=== PATIENT | male | born 1960 | race Caucasian/White ===

== ENCOUNTER 2021-05-04 14:49 | Emergency (ER) | payer BC ==
[2021-05-04 15:14] VITALS: BP 154/91; PULSE 89
--- NOTE | 2021-05-04 16:10 | EDM.PDOC ---
ED HPI GENERAL MEDICAL PROBLEM - General Chief Complaint: Lower Extremity Injury/Pain Stated Complaint: pelvis pain Time Seen by Provider: 05/04/21 15:20 Source of Information: Reports: Patient History Limitations: Reports: No Limitations - History of Present Illness INITIAL COMMENTS - FREE TEXT/NARRATIVE: Patient comes to ER with hip area pain after falling off horse. Reports that he slid off to side and did a sort of "splits" with one leg over the saddle and the other towards the ground. Did not hit head. Not wearing a helmet. Was riding at a walk when back girth slipped towards flank of horse which caused horse to hop. No contusions/bruises reported. Able to walk. Feels basically pain-free when sitting still. Some soreness under umbilicus that he feels was from saddle horn digging into lower abdomen. Has discomfort in thighs/around hips with active movement. No numbness/tingling/weakness. No other reported injuries. Bilateral Pelvic Pain Score (Numeric/FACES): 5 - Related Data Allergies Allergy/AdvReac Type Severity Reaction Status Date / Time No Known Allergies Allergy Verified 05/04/21 14:51 Home Meds: Home Meds . [No Known Home Meds] 12/27/15 [History] Past Medical History HEENT History: Reports: Impaired Vision Cardiovascular History: Reports: None, Hypertension Respiratory History: Reports: None Gastrointestinal History: Reports: None Genitourinary History: Reports: None Musculoskeletal History: Reports: None Neurological History: Reports: None Psychiatric History: Reports: None Endocrine/Metabolic History: Reports: None Hematologic History: Reports: None Immunologic History: Reports: None Oncologic (Cancer) History: Reports: None Dermatologic History: Reports: None - Infectious Disease History Infectious Disease History: Reports: Chicken Pox, Mumps - Past Surgical History Cardiovascular Surgical History: Reports: None Respiratory Surgical History: Reports: None Male Surgical History: Reports: Circumcision Endocrine Surgical History: Reports: None Neurological Surgical History: Reports: None Musculoskeletal Surgical History: Reports: None Oncologic Surgical History: Reports: None Dermatological Surgical History: Reports: None - Past Imaging History Past Imaging History: Reports: None Social & Family History - Tobacco Use Tobacco Use Status *Q: Never Tobacco User - Caffeine Use Caffeine Use: Reports: Soda Other Caffeine Use: 1 a day - Recreational Drug Use Recreational Drug Use: No - Living Situation & Occupation Living situation: Reports: , Alone Occupation: Employed Review of Systems - Review of Systems Review Of Systems: See Below Constitutional: Reports: No Symptoms Eyes: Reports: No Symptoms Ears: Reports: No Symptoms Nose: Reports: No Symptoms Mouth/Throat: Reports: No Symptoms Respiratory: Reports: No Symptoms. Denies: Shortness of Breath Cardiovascular: Reports: No Symptoms. Denies: Chest Pain GI/Abdominal: Reports: No Symptoms. Denies: Abdominal Pain Genitourinary: Reports: No Symptoms. Denies: Dysuria, Hematuria, Incontinence, Painful Urination Musculoskeletal: Reports: Other (discomfort bilat hip/thigh discomfort) Skin: Reports: No Symptoms Neurological: Denies: Confusion, Dizziness, Headache, Numbness, Paresthesia, Tingling, Trouble Speaking, Weakness, Change in Speech Psychiatric: Reports: No Symptoms ED EXAM, GENERAL - Physical Exam Exam: See Below Exam Limited By: No Limitations General Appearance: Alert, WD/WN, Other (Appears uncomfortable with asked to change positions and when asked to lie down) Eye Exam: Bilateral Eye: EOMI, PERRL Ears: Normal External Exam, Hearing Grossly Normal Nose: No: Nasal Deformity, Nasal Swelling, Nasal Drainage Throat/Mouth: Normal Lips, Normal Voice, No Airway Compromise Head: Atraumatic, Normocephalic Neck: Supple, Non-Tender, Full Range of Motion Respiratory/Chest: No Respiratory Distress, Lungs Clear, Normal Breath Sounds, No Accessory Muscle Use, Chest Non-Tender Cardiovascular: Regular Rate, Rhythm, No Murmur GI/Abdominal: Soft, No Distention, Pelvis Stable, Tender (mild tenderness with palpation just under umbilicus). No: Guarding, Rigid, Rebound (Male) Exam: Deferred Rectal (Males) Exam: Deferred Back Exam: Normal Inspection, Full Range of Motion. No: CVA Tenderness (L), CVA Tenderness (R), Muscle Spasm, Paraspinal Tenderness, Vertebral Tenderness Extremities: No Pedal Edema, Normal Capillary Refill, Other (Good passive ROM bilateral hips/LE. Minimal discomfort when patient asked to relax and not engage muscles. Diffuse nonfocal discomfort with palpation of soft tissues around inner thighs/gluteal/pelvic areas bilat. No obvious bruises/swelling. ) Neurological: Alert, Oriented, Normal Cognition, Other (no focal neuro deficits noted. ) Psychiatric: Normal Affect, Normal Mood Skin Exam: Warm, Dry, Intact, Normal Color Course - Vital Signs Last Recorded V/S: Last Vital Signs Temp 36.9 C 05/04/21 15:13 Pulse 89 05/04/21 15:13 Resp 16 05/04/21 15:13 BP 154/91 H 05/04/21 15:13 Pulse Ox 99 05/04/21 15:13 - Orders/Labs/Meds Orders: Active Orders 24 hr Category Date Time Status Lumbar Spine 2 or 3V [CR] Stat Exams 05/04/21 15:03 Taken Pelvis 1V or 2V [CR] Stat Exams 05/04/21 15:02 Taken Sacroiliac Joint 2V [CR] Stat Exams 05/04/21 15:04 Taken - Re-Assessments/Exams Free Text/Narrative Re-Assessment/Exam: 05/04/21 17:02 Xrays of L-S spine/pelvis showed no focal injuries. Patient has minimal pain with passive ROM when not engaging muscles. Suspect patient hyperextended lower extremities when he slid off saddle and is having pain from soft tissue injury. Plan at this time is to have him observe things over the coming week. Gentle stretching/activity/ice/Tylenol. To go bottles of Tramadol and Toradol were given to him to help with pain. Recommend follow up recheck if no significant improvement within a week. May benefit from PT referral at that time/may need to consider additional imaging. To follow up otherwise as needed PRN sudden problems/worsening. Patient agreeable with plan. Departure - Departure Time of Disposition: 16:05 Disposition: Home, Self-Care 01 Condition: Good Clinical Impression: Soft tissue injury of pelvic region Qualifiers: Encounter type: initial encounter Qualified Code(s): S39.93XA - Unspecified injury of pelvis, initial encounter - Discharge Information *PRESCRIPTION DRUG MONITORING PROGRAM REVIEWED*: Not Applicable *COPY OF PRESCRIPTION DRUG MONITORING REPORT IN PATIENT SHERRY: Not Applicable Instructions: Hip Pain Referrals: PCP,None [Primary Care Provider] - Forms: ED Department Discharge Additional Instructions: Gentle activity/ROM. Ice sore areas judiciously as discussed. OK to take Tylenol. Take Tramadol and Toradol 1 every 6 hours as needed for pain. The Toradol is in the same family as ibuprofen so do not take any ibuprofen or Aleve while on the Toradol. See how you feel over the coming week. If you still have significant discomfort with moving around please get rechecked as we discussed around 10 days from now. Consider referral to PT/new imaging if needed. Sepsis Event Note (ED) - Evaluation Sepsis Screening Result: No Definite Risk - Focused Exam Vital Signs: Vital Signs Temp Pulse Resp BP Pulse Ox 05/04/21 15:13 36.9 C 89 16 154/91 H 99 - My Orders Last 24 Hours: My Active Orders 05/04/21 15:02 Pelvis 1V or 2V [CR] Stat 05/04/21 15:03 Lumbar Spine 2 or 3V [CR] Stat 05/04/21 15:04 Sacroiliac Joint 2V [CR] Stat - Assessment/Plan Last 24 Hours: My Active Orders 05/04/21 15:02 Pelvis 1V or 2V [CR] Stat 05/04/21 15:03 Lumbar Spine 2 or 3V [CR] Stat 05/04/21 15:04 Sacroiliac Joint 2V [CR] Stat
== END 2021-05-04 16:30 | disposition home or self-care (01) ==
LOC: LL.ED 14:49
DX: S39.93XA Unspecified injury of pelvis, initial encounter (principal); I10 Essential (primary) hypertension; V80.010A Animal-rider injured by fall from or being thrown from horse in noncollision accident, initial encounter; Y93.52 Activity, horseback riding
CPT/HCPCS: 72100; 72170; 72200; 99283; 99283-25

== ENCOUNTER 2021-06-24 11:25 | Inpatient (IN) | payer BC ==
[2021-06-24] MEDS ORDERED: REMDESIVIR 200 MG in Sodium Chloride 0.9% 250 ML IV ONE (11:42)
--- NOTE | 2021-06-24 12:45 | EDM.PDOC ---
ED HPI GENERAL MEDICAL PROBLEM - General Chief Complaint: Respiratory Problem Stated Complaint: covid hypoxia Time Seen by Provider: 06/24/21 11:35 Source of Information: Reports: Patient History Limitations: Reports: No Limitations - History of Present Illness INITIAL COMMENTS - FREE TEXT/NARRATIVE: Pt. presents to ER with complaints of shortness of breath and cough. He was di agnosed with covid 19 last , had started feeling poorly the weekend before. He was seen in the clinic, but he did not meet criteria for monoclonal antibodies at that time. He was started on oral dexamethasone and azithromycin. Pt. states that he has become more dyspneic since his diagnosis. Complains of discomfort with swallowing, and taking a deep breath causes him significant increase in cough. Pt. states that he is chilled, occasionally diaphoretic. States that he has some weakness, but for the most part has no myalgias or arthralgias with walking but he does have increased dyspnea with ambulation. Pt. has a pulse oximeter at home and has been monitoring his O2 saturation. He states that he has been in the low 80% range so he came to the ER. Pt. denies any substernal chest pain. No jaw, arm, neck or back pain. Denies any nausea or vomiting. He has not had his covid vaccination(s). Pt. is a non-smoker/non drinker. Denies any history of chronic lung disease. He is not diabetic. Denies taking any other medications daily. Onset Date: 06/20/21 Location: Reports: Chest, Generalized Improves with: Reports: Rest Worsens with: Reports: Movement Associated Symptoms: Reports: Cough, Diaphoresis, Fever/Chills, Shortness of Breath - Related Data Allergies Allergy/AdvReac Type Severity Reaction Status Date / Time No Known Allergies Allergy Verified 06/24/21 11:27 Home Meds: Home Meds Azithromycin 1 tab PO DAILY 06/24/21 [History] dexAMETHasone [Dexamethasone] 6 mg PO DAILY 06/24/21 [History] Past Medical History HEENT History: Reports: Impaired Vision Cardiovascular History: Reports: None, Hypertension Respiratory History: Reports: None Gastrointestinal History: Reports: None Genitourinary History: Reports: None Musculoskeletal History: Reports: None Neurological History: Reports: None Psychiatric History: Reports: None Endocrine/Metabolic History: Reports: None Hematologic History: Reports: None Immunologic History: Reports: None Oncologic (Cancer) History: Reports: None Dermatologic History: Reports: None - Infectious Disease History Infectious Disease History: Reports: Chicken Pox, Mumps - Past Surgical History Cardiovascular Surgical History: Reports: None Respiratory Surgical History: Reports: None Male Surgical History: Reports: Circumcision Endocrine Surgical History: Reports: None Neurological Surgical History: Reports: None Musculoskeletal Surgical History: Reports: None Oncologic Surgical History: Reports: None Dermatological Surgical History: Reports: None - Past Imaging History Past Imaging History: Reports: None Social & Family History - Caffeine Use Caffeine Use: Reports: Soda Other Caffeine Use: 1 a day - Living Situation & Occupation Living situation: Reports: , Alone Occupation: Employed ED ROS GENERAL - Review of Systems Review Of Systems: See Below Constitutional: Reports: No Symptoms HEENT: Reports: No Symptoms Respiratory: Reports: Shortness of Breath, Cough Cardiovascular: Reports: No Symptoms Endocrine: Reports: No Symptoms GI/Abdominal: Reports: No Symptoms : Reports: No Symptoms Musculoskeletal: Reports: No Symptoms Skin: Reports: No Symptoms Neurological: Reports: No Symptoms Psychiatric: Reports: No Symptoms Hematologic/Lymphatic: Reports: No Symptoms Immunologic: Reports: No Symptoms ED EXAM, GENERAL - Physical Exam Exam: See Below Exam Limited By: No Limitations General Appearance: Alert, WD/WN, No Apparent Distress Eye Exam: Bilateral Eye: EOMI, PERRL Nose: Normal Inspection, Normal Mucosa, No Blood Throat/Mouth: Normal Inspection, Normal Lips, Normal Teeth, Normal Oropharynx, Normal Voice, No Airway Compromise Head: Atraumatic, Normocephalic Neck: Normal Inspection, Supple, Non-Tender, Full Range of Motion Respiratory/Chest: No Respiratory Distress, Lungs Clear, Normal Breath Sounds, No Accessory Muscle Use, Chest Non-Tender Cardiovascular: Normal Peripheral Pulses, Regular Rate, Rhythm, No Edema, No JVD, No Murmur Peripheral Pulses: 4+: Radial (R) GI/Abdominal: Soft, Non-Tender, No Distention, No Mass (Male) Exam: Deferred Rectal (Males) Exam: Deferred Back Exam: Normal Inspection, Full Range of Motion Extremities: Normal Inspection, Normal Range of Motion, Non-Tender, No Pedal Edema, Normal Capillary Refill Neurological: Alert, Oriented, CN II-XII Intact, Normal Cognition, Normal Gait, Normal Reflexes, No Motor/Sensory Deficits Psychiatric: Normal Affect, Normal Mood Skin Exam: Warm, Dry, Intact, Normal Color, No Rash Lymphatic: No Adenopathy #1 Interpretation Rhythm: NSR Earle: Normal P-Wave: Present QRS: Normal ST-T: Normal QT: Normal Course - Vital Signs Last Recorded V/S: Last Vital Signs Temp 36.8 C 06/24/21 11:25 Pulse 91 06/24/21 12:09 Resp 19 06/24/21 12:09 BP 126/77 06/24/21 12:09 Pulse Ox 94 L 06/24/21 12:09 - Orders/Labs/Meds Orders: Active Orders 24 hr Category Date Time Status Cardiac Monitoring [RC] CONTINUOUS Care 06/24/21 11:41 Active Intake and Output [RC] QSHIFT Care 06/24/21 11:41 Active Overnight Pulse Oximetry [RC] Click to Edit Care 06/24/21 11:41 Active Oxygen Therapy [RC] PRN Care 06/24/21 11:41 Active Peripheral IV Care [RC] . DIRECTED Care 06/24/21 11:41 Active Up With Assistance [RC] ASDIRECTED Care 06/24/21 11:41 Active Vital Signs [RC] Q4H Care 06/24/21 11:41 Active Chest 1V Frontal [CR] Stat Exams 06/24/21 11:40 Taken BILIRUBIN DIRECT [CHEM] DAILY Lab 06/25/21 11:45 Ordered BILIRUBIN DIRECT [CHEM] DAILY Lab 06/26/21 11:45 Ordered BILIRUBIN DIRECT [CHEM] DAILY Lab 06/27/21 11:45 Ordered BILIRUBIN DIRECT [CHEM] DAILY Lab 06/28/21 11:45 Ordered COMPREHENSIVE METABOLIC PN,CMP [CHEM] DAILY Lab 06/25/21 11:45 Ordered COMPREHENSIVE METABOLIC PN,CMP [CHEM] DAILY Lab 06/26/21 11:45 Ordered COMPREHENSIVE METABOLIC PN,CMP [CHEM] DAILY Lab 06/27/21 11:45 Ordered COMPREHENSIVE METABOLIC PN,CMP [CHEM] DAILY Lab 06/28/21 11:45 Ordered CULTURE BLOOD [BC] Stat Lab 06/24/21 12:14 Received CULTURE BLOOD [BC] Stat Lab 06/24/21 12:30 Received FERRITIN [CHEM] Stat Lab 06/24/21 12:14 Received Sodium Chloride 0.9% [Saline Flush] Med 06/24/21 11:39 Active 10 ml FLUSH ASDIRECTED PRN Blood Culture x2 Reflex Set [OM.PC] Stat Oth 06/24/21 11:40 Ordered Peripheral IV Insertion Adult [OM.PC] Routine Oth 06/24/21 11:40 Ordered Pulse Oximetry Continuous Monitoring [OM.PC] Routine Oth 06/24/21 11:40 Ordered Medication Orders Dexamethasone (Dexamethasone 2 Mg Tab) 6 mg PO DAILY ANISH Remdesivir 100 mg/ Sodium (Chloride) 100 mls @ 100 mls/hr IV Q24H ANISH Stop: 06/28/21 15:59 Sodium Chloride (Sodium Chloride 0.9% 10 Ml Syringe) 10 ml FLUSH ASDIRECTED PRN PRN Reason: Keep Vein Open Sodium Chloride (Sodium Chloride 0.9% 10 Ml Syringe) 30 ml FLUSH DAILY@1600 ANISH Stop: 06/28/21 16:01 Labs: Laboratory Tests 06/24/21 06/24/21 06/24/21 Range/Units 12:14 12:14 12:14 WBC (4.0-10.2) K/uL RBC (4.33-5.41) M/uL Hgb (13.1-16.8) g/dL Hct (39.0-49.0) % MCV (84.0-98.0) fL MCH (28.2-33.3) pg MCHC (31.7-36.0) g/dL RDW (11.2-14.1) % Plt Count (150-350) K/uL Neut % (Auto) (45.0-80.0) % Lymph % (Auto) (10.0-50.0) % [place] % (Auto) (2.0-14.0) % Eos % (Auto) (0.0-5.0) % Baso % (Auto) (0.0-2.0) % Neut # (Auto) (1.40-7.00) K/uL Lymph # (Auto) (0.50-3.50) K/uL [place] # (Auto) (0.00-1.00) K/uL Eos # (Auto) (0.00-0.50) K/uL Baso # (Auto) (0.00-0.20) K/uL PT 10.6 (9.5-12.0) SEC INR 1.1 APTT 29.2 (24.5-32.8) SEC D-Dimer, Quantitative (0-400) ng/mL Sodium 140 (136-145) mmol/L Potassium 3.9 (3.5-5.1) mmol/L Chloride 103 (98-107) mmol/L Carbon Dioxide 30.2 (21.0-32.0) mmol/L Anion Gap 6.8 L (7-15) meq/L BUN 29 H (7-18) mg/dL Creatinine 1.04 (0.51-1.17) mg/dL Est Cr Clr Drug Dosing 78.97 mL/min Estimated GFR (MDRD) > 60 mL/min Glucose 105 H (70-99) mg/dL Lactic Acid 2.0 (0.4-2.0) mmol/L Calcium 8.4 L (8.5-10.1) mg/dL Phosphorus 2.9 (2.6-4.7) mg/dL Magnesium 2.5 H (1.8-2.4) mg/dL Total Bilirubin 0.8 (0.2-1.0) mg/dL Direct Bilirubin 0.2 (0.0-0.2) mg/dL AST 50 H (15-37) U/L ALT 68 (12-78) U/L Alkaline Phosphatase 51 (46-116) IU/L Lactate Dehydrogenase 407 H (81-234) U/L Troponin I High Sens 7 (<=76) ng/L C-Reactive Protein 4.8 H (<=0.9) mg/dL NT-Pro-B Natriuret Pep 78 (0-125) pg/mL Total Protein 8.0 (6.4-8.2) g/dL Albumin 3.0 L (3.4-5.0) g/dL 06/24/21 06/24/21 Range/Units 12:14 12:14 WBC 9.8 (4.0-10.2) K/uL RBC 5.72 H (4.33-5.41) M/uL Hgb 16.8 (13.1-16.8) g/dL Hct 48.1 (39.0-49.0) % MCV 84.1 (84.0-98.0) fL MCH 29.4 (28.2-33.3) pg MCHC 34.9 (31.7-36.0) g/dL RDW 13.7 (11.2-14.1) % Plt Count 203 (150-350) K/uL Neut % (Auto) 91.0 H (45.0-80.0) % Lymph % (Auto) 5.0 L (10.0-50.0) % [place] % (Auto) 4.0 (2.0-14.0) % Eos % (Auto) 0.0 (0.0-5.0) % Baso % (Auto) 0.0 (0.0-2.0) % Neut # (Auto) 8.94 H (1.40-7.00) K/uL Lymph # (Auto) 0.49 L (0.50-3.50) K/uL [place] # (Auto) 0.39 (0.00-1.00) K/uL Eos # (Auto) 0.00 (0.00-0.50) K/uL Baso # (Auto) 0.00 (0.00-0.20) K/uL PT (9.5-12.0) SEC INR APTT (24.5-32.8) SEC D-Dimer, Quantitative 915 H (0-400) ng/mL Sodium (136-145) mmol/L Potassium (3.5-5.1) mmol/L Chloride (98-107) mmol/L Carbon Dioxide (21.0-32.0) mmol/L Anion Gap (7-15) meq/L BUN (7-18) mg/dL Creatinine (0.51-1.17) mg/dL Est Cr Clr Drug Dosing mL/min Estimated GFR (MDRD) mL/min Glucose (70-99) mg/dL Lactic Acid (0.4-2.0) mmol/L Calcium (8.5-10.1) mg/dL Phosphorus (2.6-4.7) mg/dL Magnesium (1.8-2.4) mg/dL Total Bilirubin (0.2-1.0) mg/dL Direct Bilirubin (0.0-0.2) mg/dL AST (15-37) U/L ALT (12-78) U/L Alkaline Phosphatase (46-116) IU/L Lactate Dehydrogenase (81-234) U/L Troponin I High Sens (<=76) ng/L C-Reactive Protein (<=0.9) mg/dL NT-Pro-B Natriuret Pep (0-125) pg/mL Total Protein (6.4-8.2) g/dL Albumin (3.4-5.0) g/dL Meds: Medications Generic Name Dose Route Start Last Admin Trade Name Freq PRN Reason Stop Dose Admin Dexamethasone 6 mg 06/24/21 15:00 Dexamethasone 2 Mg Tab PO DAILY ANISH Remdesivir 100 mg/ Sodium 100 mls @ 100 mls/hr 06/25/21 15:00 Chloride IV 06/28/21 15:59 Q24H ANISH Sodium Chloride 10 ml 06/24/21 11:39 Sodium Chloride 0.9% 10 Ml Syringe FLUSH ASDIRECTED PRN Keep Vein Open Sodium Chloride 30 ml 06/24/21 16:00 Sodium Chloride 0.9% 10 Ml Syringe FLUSH 06/28/21 16:01 DAILY@1600 ANISH Discontinued Medications Generic Name Dose Route Start Last Admin Trade Name Freq PRN Reason Stop Dose Admin Azithromycin 500 mg 06/24/21 15:00 Azithromycin 250 Mg Tab PO 06/24/21 15:01 ONETIME ONE Dexamethasone 6 mg 06/25/21 08:00 Dexamethasone 10 Mg/Ml Sdv IVPUSH DAILY ANISH Remdesivir 200 mg/ Sodium 250 mls @ 250 mls/hr 06/24/21 11:42 Chloride IV 06/24/21 12:41 ONETIME ONE Iopamidol 100 ml 06/24/21 13:39 06/24/21 14:09 Iopamidol 755 Mg/Ml 100 Ml Bottle IVPUSH 06/24/21 13:40 100 ml ONETIME STA Administration - Radiology Interpretation Free Text/Narrative:: chest x-ray-Poor inspiration, ground glass appearance consistent with viral pneumonia. CTA of chest was obtained, as he had + d dimer. No PE was noted. There was no evidence of heart strain. Diffuse interstitial opacification consistent with covid pneumonia. Departure - Departure Time of Disposition: 15:15 Disposition: Admitted As Inpatient 68 Clinical Impression: Pneumonia due to 2019 novel coronavirus, Hypoxia - Discharge Information Sepsis Event Note (ED) - Focused Exam Vital Signs: Vital Signs Temp Pulse Resp BP Pulse Ox Pulse Ox 06/24/21 12:09 91 19 126/77 94 L 06/24/21 11:54 93 19 122/84 93 L 06/24/21 11:39 91 20 119/83 91 L 06/24/21 11:30 90 L 06/24/21 11:25 36.8 C 92 24 H 132/87 80 L - Problem List Review Problem List Initiated/Reviewed/Updated: Yes - My Orders Last 24 Hours: My Active Orders 06/24/21 11:39 Sodium Chloride 0.9% [Saline Flush] 10 ml FLUSH ASDIRECTED PRN 06/24/21 11:40 Chest 1V Frontal [CR] Stat Blood Culture x2 Reflex Set [OM.PC] Stat Peripheral IV Insertion Adult [OM.PC] Routine Pulse Oximetry Continuous Monitoring [OM.PC] Routine 06/24/21 11:41 Cardiac Monitoring [RC] CONTINUOUS Intake and Output [RC] QSHIFT Overnight Pulse Oximetry [RC] Click to Edit Oxygen Therapy [RC] PRN Peripheral IV Care [RC] . DIRECTED Up With Assistance [RC] ASDIRECTED Vital Signs [RC] Q4H 06/24/21 12:14 CULTURE BLOOD [BC] Stat FERRITIN [CHEM] Stat 06/24/21 12:30 CULTURE BLOOD [BC] Stat 06/25/21 11:45 BILIRUBIN DIRECT [CHEM] DAILY COMPREHENSIVE METABOLIC PN,CMP [CHEM] DAILY 06/26/21 11:45 BILIRUBIN DIRECT [CHEM] DAILY COMPREHENSIVE METABOLIC PN,CMP [CHEM] DAILY 06/27/21 11:45 BILIRUBIN DIRECT [CHEM] DAILY COMPREHENSIVE METABOLIC PN,CMP [CHEM] DAILY 06/28/21 11:45 BILIRUBIN DIRECT [CHEM] DAILY COMPREHENSIVE METABOLIC PN,CMP [CHEM] DAILY - Assessment/Plan Last 24 Hours: My Active Orders 06/24/21 11:39 Sodium Chloride 0.9% [Saline Flush] 10 ml FLUSH ASDIRECTED PRN 06/24/21 11:40 Chest 1V Frontal [CR] Stat Blood Culture x2 Reflex Set [OM.PC] Stat Peripheral IV Insertion Adult [OM.PC] Routine Pulse Oximetry Continuous Monitoring [OM.PC] Routine 06/24/21 11:41 Cardiac Monitoring [RC] CONTINUOUS Intake and Output [RC] QSHIFT Overnight Pulse Oximetry [RC] Click to Edit Oxygen Therapy [RC] PRN Peripheral IV Care [RC] . DIRECTED Up With Assistance [RC] ASDIRECTED Vital Signs [RC] Q4H 06/24/21 12:14 CULTURE BLOOD [BC] Stat FERRITIN [CHEM] Stat 06/24/21 12:30 CULTURE BLOOD [BC] Stat 06/25/21 11:45 BILIRUBIN DIRECT [CHEM] DAILY COMPREHENSIVE METABOLIC PN,CMP [CHEM] DAILY 06/26/21 11:45 BILIRUBIN DIRECT [CHEM] DAILY COMPREHENSIVE METABOLIC PN,CMP [CHEM] DAILY 06/27/21 11:45 BILIRUBIN DIRECT [CHEM] DAILY COMPREHENSIVE METABOLIC PN,CMP [CHEM] DAILY 06/28/21 11:45 BILIRUBIN DIRECT [CHEM] DAILY COMPREHENSIVE METABOLIC PN,CMP [CHEM] DAILY Plan: Pt. was admitted acute. O2 sat has been consistently in the mid 90% range since started O2 at 5L/min per [place]. Pt. indicated he wanted to be intubated and ventilated if needed for respiratory failure. he was started on remdesivir 200mg x 1, then 100mg daily thereafter. Will continue azithromycin for full course, as well as oral dexamethasone. CTA of chest did not show PE or heart strain. He did have a fall from a horse at the end of April and had extensive bruising to his lower body which could potentially account for mildly elevated d dimer as well. He will but up ad jeremy with bathroom privileges. Will start incentive spirometry. Family was briefed by nursing. They are welcome to call at any time if they have questions or concerns.
[2021-06-24] MEDS ORDERED: Iopamidol 755 Mg/ML 100 ML Bottle IVPUSH STA (13:39)
[2021-06-24 13:56] LABS: PTT,PARTIAL THROMBOPLSTIN TIME 29.2 SEC (24.5-32.8)
[2021-06-24 14:07] LABS: ANION GAP 6.8 meq/L (7-15); CHLORIDE,CL 103 mmol/L (98-107); SODIUM,NA 140 mmol/L (136-145)
[2021-06-24] MEDS ORDERED: Azithromycin 250 MG Tab PO ONE (15:00)
[2021-06-24] MEDS: Dexamethasone 2 MG Tab PO SCH (15:08)
[2021-06-24] MEDS: Sodium Chloride 0.9% 10 ML Syringe FLUSH PRN ×3 (15:11→21:05)
[2021-06-24] MEDS: Enoxaparin 40 MG/0.4 ML Syringe SUBCUT SCH (16:12)
[2021-06-24] MEDS: Sodium Chloride 0.9% 10 ML Syringe FLUSH SCH (16:14)
[2021-06-25] MEDS: Albuterol/Ipratropium 3.0-0.5 MG/3 ML Neb Soln NEB PRN ×2 (00:20→08:10)
[2021-06-25] MEDS: Aluminum Hydroxide/Magnesium Hydroxide/Simethicone Susp 30 ML Cup PO PRN (00:21)
[2021-06-25] MEDS ORDERED: Dexamethasone 10 MG/ML SDV IVPUSH SCH (08:00)
[2021-06-25 08:02] LABS: ANION GAP 8.2 meq/L (7-15); CHLORIDE,CL 105 mmol/L (98-107); SODIUM,NA 140 mmol/L (136-145)
[2021-06-25] MEDS: Enoxaparin 40 MG/0.4 ML Syringe SUBCUT SCH (08:10)
[2021-06-25] MEDS: Dexamethasone 2 MG Tab PO SCH (08:11)
[2021-06-25] MEDS: Sodium Chloride 0.9% 10 ML Syringe FLUSH SCH ×2 (08:12→16:14)
[2021-06-25] MEDS ORDERED: Albuterol/Ipratropium 4 GM Inhalation Spray INH PRN (11:12)
--- NOTE | 2021-06-25 14:19 | PCM.PN ---
- General Info Date of Service: 06/25/21 Admission Dx/Problem (Free Text): Patient admitted for treatment of worsening Covid and Covid-related hypoxemia Subjective Update: Feels better since being started on oxygen Functional Status: Reports: Pain Controlled, Tolerating Diet. Denies: New Symptoms - Review of Systems General: Reports: Weakness, Fatigue, Malaise, Chills, Appetite (poor). Denies: Fever, Night Sweats HEENT: Reports: No Symptoms Pulmonary: Reports: Shortness of Breath, Cough. Denies: Pleuritic Chest Pain, Sputum, Hemoptysis, Wheezing Cardiovascular: Reports: No Symptoms Gastrointestinal: Reports: No Symptoms. Denies: Abdominal Pain, Diarrhea, Nausea, Vomiting Genitourinary: Reports: No Symptoms Musculoskeletal: Reports: No Symptoms Skin: Reports: No Symptoms Neurological: Reports: No Symptoms. Denies: Headache Psychiatric: Reports: No Symptoms - Patient Data Vitals - Most Recent: Last Vital Signs Temp 36.7 C 06/25/21 11:58 Pulse 73 06/25/21 11:58 Resp 24 H 06/25/21 11:58 BP 124/73 06/25/21 11:58 Pulse Ox 89 L 06/25/21 11:58 Weight - Most Recent: 90.718 kg I&O - Last 24 Hours: Intake & Output 06/24/21 06/25/21 06/25/21 22:59 06:59 14:59 Intake Total 1100 100 140 Output Total 500 400 500 Balance 600 -300 -360 Lab Results Last 24 Hours: Laboratory Results - last 24 hr 06/24/21 06/24/21 06/25/21 Range/Units 12:14 12:14 07:30 Sodium 140 (136-145) mmol/L Potassium 4.0 (3.5-5.1) mmol/L Chloride 105 (98-107) mmol/L Carbon Dioxide 26.8 (21.0-32.0) mmol/L Anion Gap 8.2 (7-15) meq/L BUN 28 H (7-18) mg/dL Creatinine 0.85 (0.51-1.17) mg/dL Est Cr Clr Drug Dosing 96.62 mL/min Estimated GFR (MDRD) > 60 mL/min Glucose 112 H (70-99) mg/dL Lactic Acid 2.0 (0.4-2.0) mmol/L Calcium 8.0 L (8.5-10.1) mg/dL Ferritin 1375 H (8-388) ng/mL Total Bilirubin 0.6 (0.2-1.0) mg/dL Direct Bilirubin 0.2 (0.0-0.2) mg/dL AST 40 H (15-37) U/L ALT 59 (12-78) U/L Alkaline Phosphatase 45 L (46-116) IU/L Total Protein 6.9 (6.4-8.2) g/dL Albumin 2.5 L (3.4-5.0) g/dL [place] Results Last 24 Hours: Microbiology 06/24/21 12:30 Aerobic Blood Culture - Preliminary Blood - Venous - Lab Draw NO GROWTH AFTER 1 DAY Anaerobic Blood Culture - Preliminary NO GROWTH AFTER 1 DAY 06/24/21 12:14 Aerobic Blood Culture - Preliminary Blood - Venous NO GROWTH AFTER 1 DAY Anaerobic Blood Culture - Preliminary NO GROWTH AFTER 1 DAY Med Orders - Current: Current Medications Al Hydroxide/Mg Hydroxide (Aluminum Hydroxide/Magnesium Hydroxide/Simethicone Susp 30 Ml Cup) 30 ml PO Q6H PRN PRN Reason: Dyspepsia Last Admin: 06/25/21 00:21 Dose: 30 ml Documented by: Albuterol/Ipratropium (Albuterol/Ipratropium 4 Gm Inhalation [place]) 0 gm INH QID PRN PRN Reason: SHORTNESS OF BREATH Dexamethasone (Dexamethasone 2 Mg Tab) 6 mg PO DAILY [facility] Last Admin: 06/25/21 08:11 Dose: 6 mg Documented by: Enoxaparin Sodium (Enoxaparin 40 Mg/0.4 Ml Syringe) 40 mg SUBCUT DAILY [facility] Last Admin: 06/25/21 08:10 Dose: 40 mg Documented by: Remdesivir 100 mg/ Sodium (Chloride) 100 mls @ 100 mls/hr IV Q24H [facility] Stop: 06/28/21 15:59 Sodium Chloride (Sodium Chloride 0.9% 10 Ml Syringe) 10 ml FLUSH ASDIRECTED PRN PRN Reason: Keep Vein Open Last Admin: 06/24/21 21:05 Dose: 10 ml Documented by: Sodium Chloride (Sodium Chloride 0.9% 10 Ml Syringe) 30 ml FLUSH DAILY@1600 [facility] Stop: 06/28/21 16:01 Last Admin: 06/24/21 16:14 Dose: 30 ml Documented by: Sodium Chloride (Sodium Chloride 0.9% 10 Ml Syringe) 10 ml FLUSH Q12HR [facility] Last Admin: 06/25/21 08:12 Dose: 10 ml Documented by: Discontinued Medications Albuterol/Ipratropium (Albuterol/Ipratropium 3.0-0.5 Mg/3 Ml Neb Soln) 3 ml NEB Q4HRRT PRN PRN Reason: Dyspnea Last Admin: 06/25/21 08:10 Dose: 3 ml Documented by: Azithromycin (Azithromycin 250 Mg Tab) 500 mg PO ONETIME ONE Stop: 06/24/21 15:01 Last Admin: 06/24/21 15:06 Dose: 500 mg Documented by: Dexamethasone (Dexamethasone 10 Mg/Ml Sdv) 6 mg IVPUSH DAILY [facility] Remdesivir 200 mg/ Sodium (Chloride) 250 mls @ 250 mls/hr IV ONETIME ONE Stop: 06/24/21 12:41 Last Admin: 06/24/21 15:09 Dose: 250 mls/hr Documented by: Iopamidol (Iopamidol 755 Mg/Ml 100 Ml Bottle) 100 ml IVPUSH ONETIME STA Stop: 06/24/21 13:40 Last Admin: 06/24/21 14:09 Dose: 100 ml Documented by: - Exam Quality Assessment: Supplemental Oxygen, DVT Prophylaxis General: Alert, Oriented, Cooperative, No Acute Distress HEENT: Pupils Equal, Pupils Reactive, EOMI, Mucous Membr. Moist/[place] Neck: Supple Lungs: Clear to Auscultation, Other (mild increased respiratory rate noted. ). No: Crackles, Rales, Rhonchi, Rub, Stridor, Wheezing Cardiovascular: Regular Rate, Regular Rhythm GI/Abdominal Exam: Soft, Non-Tender, No Distention (Male) Exam: Deferred Back Exam: No: Muscle Spasm, Paraspinal Tenderness, Vertebral Tenderness Extremities: Non-Tender, Normal Capillary Refill Skin: Warm, Dry Neurological: No New Focal Deficit Psy/Mental Status: Alert, Normal Affect, Normal Mood - Patient Data Lab Results Last 24 hrs: Laboratory Results - last 24 hr 06/24/21 06/24/21 06/25/21 Range/Units 12:14 12:14 07:30 Sodium 140 (136-145) mmol/L Potassium 4.0 (3.5-5.1) mmol/L Chloride 105 (98-107) mmol/L Carbon Dioxide 26.8 (21.0-32.0) mmol/L Anion Gap 8.2 (7-15) meq/L BUN 28 H (7-18) mg/dL Creatinine 0.85 (0.51-1.17) mg/dL Est Cr Clr Drug Dosing 96.62 mL/min Estimated GFR (MDRD) > 60 mL/min Glucose 112 H (70-99) mg/dL Lactic Acid 2.0 (0.4-2.0) mmol/L Calcium 8.0 L (8.5-10.1) mg/dL Ferritin 1375 H (8-388) ng/mL Total Bilirubin 0.6 (0.2-1.0) mg/dL Direct Bilirubin 0.2 (0.0-0.2) mg/dL AST 40 H (15-37) U/L ALT 59 (12-78) U/L Alkaline Phosphatase 45 L (46-116) IU/L Total Protein 6.9 (6.4-8.2) g/dL Albumin 2.5 L (3.4-5.0) g/dL Result Diagrams: 06/24/21 12:14 06/25/21 07:30 [place] Results Last 24 hrs: Microbiology 06/24/21 12:30 Aerobic Blood Culture - Preliminary Blood - Venous - Lab Draw NO GROWTH AFTER 1 DAY Anaerobic Blood Culture - Preliminary NO GROWTH AFTER 1 DAY 06/24/21 12:14 Aerobic Blood Culture - Preliminary Blood - Venous NO GROWTH AFTER 1 DAY Anaerobic Blood Culture - Preliminary NO GROWTH AFTER 1 DAY Sepsis Event Note - Evaluation Sepsis Screening Result: No Definite Risk - Focused Exam Vital Signs: Vital Signs Temp Pulse Resp BP BP Pulse Ox 06/25/21 11:58 36.7 C 73 24 H 124/73 89 L 06/25/21 08:00 36.4 C 70 24 H 129/85 89 L 06/25/21 04:38 36.3 C 74 18 126/70 92 L - Problem List & Annotations (1) Pneumonia due to 2019 novel coronavirus SNOMED Code(s): 748683112255163448 Code(s): U07.1 - COVID-19; J12.82 - PNEUMONIA DUE TO CORONAVIRUS DISEASE 2019 Status: Acute Priority: High Current Visit: Yes Onset Date: ~06/16/21 Annotation/Comment:: Receiving Remdesivir and Dexamethasone (2) Hypoxia SNOMED Code(s): 788004681 Code(s): R09.02 - HYPOXEMIA Status: Acute Priority: High Current Visit: Yes Annotation/Comment:: Currently receving 8L via [place]. - Problem List Review Problem List Initiated/Reviewed/Updated: Yes - My Orders Last 24 Hours: My Active Orders 06/25/21 11:12 Albuterol/Ipratropium [Combivent Respimat] 0 gm INH QID PRN - Assessment Assessment:: Covid related hypoxemia - Plan Plan:: Continue supplemental oxygen/Remdesivir/Dexamethasone. Consider transfer to [place] if worsening respiratory compromise is noted. Anticipate additional 3-4+ days inpatient care depending upon clinical course.
[2021-06-25] MEDS: REMDESIVIR 100 MG in Sodium Chloride 0.9% 100 ML IV SCH (15:13)
[2021-06-26] MEDS: Sodium Chloride 0.9% 10 ML Syringe FLUSH SCH ×4 (00:12→20:05)
[2021-06-26] MEDS: Aluminum Hydroxide/Magnesium Hydroxide/Simethicone Susp 30 ML Cup PO PRN (02:44)
[2021-06-26 08:01] LABS: ANION GAP 9.7 meq/L (7-15); CHLORIDE,CL 106 mmol/L (98-107); SODIUM,NA 143 mmol/L (136-145)
[2021-06-26] MEDS: Dexamethasone 2 MG Tab PO SCH (08:25)
[2021-06-26] MEDS: Enoxaparin 40 MG/0.4 ML Syringe SUBCUT SCH (08:26)
--- NOTE | 2021-06-26 09:07 | PCM.PN ---
- General Info Date of Service: 06/26/21 Admission Dx/Problem (Free Text): Patient admitted for treatment of worsening Covid and Covid-related hypoxemia Subjective Update: Feels better since being started on oxygen Functional Status: Reports: Pain Controlled, Tolerating Diet, Ambulating, Urinating, Incentive Spirometry. Denies: New Symptoms - Review of Systems General: Reports: Weakness, Fatigue, Malaise, Chills, Appetite (poor) HEENT: Reports: No Symptoms Pulmonary: Reports: Shortness of Breath, Cough. Denies: Sputum, Hemoptysis, Wheezing Cardiovascular: Reports: No Symptoms Gastrointestinal: Reports: Decreased Appetite Genitourinary: Reports: No Symptoms Musculoskeletal: Reports: No Symptoms Skin: Reports: No Symptoms Neurological: Reports: No Symptoms Psychiatric: Reports: No Symptoms - Patient Data Vitals - Most Recent: Last Vital Signs Temp 36.2 C 06/26/21 03:58 Pulse 66 06/26/21 03:58 Resp 24 H 06/26/21 03:58 BP 140/83 06/26/21 03:58 Pulse Ox 94 L 06/26/21 03:58 Weight - Most Recent: 90.718 kg I&O - Last 24 Hours: Intake & Output 06/25/21 06/26/21 06/26/21 22:59 06:59 14:59 Intake Total 340 Output Total 600 Balance 340 -600 Lab Results Last 24 Hours: Laboratory Results - last 24 hr 06/26/21 Range/Units 07:30 Sodium 143 (136-145) mmol/L Potassium 4.3 (3.5-5.1) mmol/L Chloride 106 (98-107) mmol/L Carbon Dioxide 27.3 (21.0-32.0) mmol/L Anion Gap 9.7 (7-15) meq/L BUN 29 H (7-18) mg/dL Creatinine 0.83 (0.51-1.17) mg/dL Est Cr Clr Drug Dosing 98.95 mL/min Estimated GFR (MDRD) > 60 mL/min Glucose 94 (70-99) mg/dL Calcium 8.3 L (8.5-10.1) mg/dL Total Bilirubin 0.7 (0.2-1.0) mg/dL Direct Bilirubin 0.2 (0.0-0.2) mg/dL AST 28 (15-37) U/L ALT 44 (12-78) U/L Alkaline Phosphatase 51 (46-116) IU/L Total Protein 6.9 (6.4-8.2) g/dL Albumin 2.5 L (3.4-5.0) g/dL [place] Results Last 24 Hours: Microbiology 06/24/21 12:30 Aerobic Blood Culture - Preliminary Blood - Venous - Lab Draw NO GROWTH AFTER 1 DAY Anaerobic Blood Culture - Preliminary NO GROWTH AFTER 1 DAY 06/24/21 12:14 Aerobic Blood Culture - Preliminary Blood - Venous NO GROWTH AFTER 1 DAY Anaerobic Blood Culture - Preliminary NO GROWTH AFTER 1 DAY Med Orders - Current: Current Medications Al Hydroxide/Mg Hydroxide (Aluminum Hydroxide/Magnesium Hydroxide/Simethicone Susp 30 Ml Cup) 30 ml PO Q6H PRN PRN Reason: Dyspepsia Last Admin: 06/26/21 02:44 Dose: 30 ml Documented by: Albuterol/Ipratropium (Albuterol/Ipratropium 4 Gm Inhalation [place]) 0 gm INH QID PRN PRN Reason: SHORTNESS OF BREATH Dexamethasone (Dexamethasone 2 Mg Tab) 6 mg PO DAILY [facility] Last Admin: 06/26/21 08:25 Dose: 6 mg Documented by: Enoxaparin Sodium (Enoxaparin 40 Mg/0.4 Ml Syringe) 40 mg SUBCUT DAILY [facility] Last Admin: 06/26/21 08:26 Dose: 40 mg Documented by: Remdesivir 100 mg/ Sodium (Chloride) 100 mls @ 100 mls/hr IV Q24H [facility] Stop: 06/28/21 15:59 Last Admin: 06/25/21 15:13 Dose: 100 mls/hr Documented by: Sodium Chloride (Sodium Chloride 0.9% 10 Ml Syringe) 10 ml FLUSH ASDIRECTED PRN PRN Reason: Keep Vein Open Last Admin: 06/24/21 21:05 Dose: 10 ml Documented by: Sodium Chloride (Sodium Chloride 0.9% 10 Ml Syringe) 30 ml FLUSH DAILY@1600 [facility] Stop: 06/28/21 16:01 Last Admin: 06/25/21 16:14 Dose: 30 ml Documented by: Sodium Chloride (Sodium Chloride 0.9% 10 Ml Syringe) 10 ml FLUSH Q12HR [facility] Last Admin: 06/26/21 08:26 Dose: 10 ml Documented by: Discontinued Medications Albuterol/Ipratropium (Albuterol/Ipratropium 3.0-0.5 Mg/3 Ml Neb Soln) 3 ml NEB Q4HRRT PRN PRN Reason: Dyspnea Last Admin: 06/25/21 08:10 Dose: 3 ml Documented by: Azithromycin (Azithromycin 250 Mg Tab) 500 mg PO ONETIME ONE Stop: 06/24/21 15:01 Last Admin: 06/24/21 15:06 Dose: 500 mg Documented by: Dexamethasone (Dexamethasone 10 Mg/Ml Sdv) 6 mg IVPUSH DAILY [facility] Remdesivir 200 mg/ Sodium (Chloride) 250 mls @ 250 mls/hr IV ONETIME ONE Stop: 06/24/21 12:41 Last Admin: 06/24/21 15:09 Dose: 250 mls/hr Documented by: Iopamidol (Iopamidol 755 Mg/Ml 100 Ml Bottle) 100 ml IVPUSH ONETIME STA Stop: 06/24/21 13:40 Last Admin: 06/24/21 14:09 Dose: 100 ml Documented by: - Exam Quality Assessment: Supplemental Oxygen, DVT Prophylaxis General: Alert, Oriented, Cooperative, No Acute Distress HEENT: Pupils Equal, Pupils Reactive, EOMI, Mucous Membr. Moist/[place] Neck: Supple Lungs: Other (mild tachypnea). No: Crackles, Rales, Rhonchi, Stridor, Wheezing Cardiovascular: Regular Rate, Regular Rhythm GI/Abdominal Exam: Normal Bowel Sounds, Soft, Non-Tender, No Distention (Male) Exam: Deferred Back Exam: No: Muscle Spasm Extremities: Non-Tender, Normal Capillary Refill Skin: Warm, Dry Neurological: No New Focal Deficit Psy/Mental Status: Alert, Normal Affect, Normal Mood - Patient Data Lab Results Last 24 hrs: Laboratory Results - last 24 hr 06/26/21 Range/Units 07:30 Sodium 143 (136-145) mmol/L Potassium 4.3 (3.5-5.1) mmol/L Chloride 106 (98-107) mmol/L Carbon Dioxide 27.3 (21.0-32.0) mmol/L Anion Gap 9.7 (7-15) meq/L BUN 29 H (7-18) mg/dL Creatinine 0.83 (0.51-1.17) mg/dL Est Cr Clr Drug Dosing 98.95 mL/min Estimated GFR (MDRD) > 60 mL/min Glucose 94 (70-99) mg/dL Calcium 8.3 L (8.5-10.1) mg/dL Total Bilirubin 0.7 (0.2-1.0) mg/dL Direct Bilirubin 0.2 (0.0-0.2) mg/dL AST 28 (15-37) U/L ALT 44 (12-78) U/L Alkaline Phosphatase 51 (46-116) IU/L Total Protein 6.9 (6.4-8.2) g/dL Albumin 2.5 L (3.4-5.0) g/dL Result Diagrams: 06/24/21 12:14 06/26/21 07:30 [place] Results Last 24 hrs: Microbiology 06/24/21 12:30 Aerobic Blood Culture - Preliminary Blood - Venous - Lab Draw NO GROWTH AFTER 1 DAY Anaerobic Blood Culture - Preliminary NO GROWTH AFTER 1 DAY 06/24/21 12:14 Aerobic Blood Culture - Preliminary Blood - Venous NO GROWTH AFTER 1 DAY Anaerobic Blood Culture - Preliminary NO GROWTH AFTER 1 DAY Sepsis Event Note - Evaluation Sepsis Screening Result: No Definite Risk - Focused Exam Vital Signs: Vital Signs Temp Temp Pulse Resp BP Pulse Ox 06/26/21 03:58 36.2 C 66 24 H 140/83 94 L 06/26/21 00:00 36.4 C 74 24 H 154/86 H 91 L - Problem List & Annotations (1) Pneumonia due to 2019 novel coronavirus SNOMED Code(s): 156620064266851982 Code(s): U07.1 - COVID-19; J12.82 - PNEUMONIA DUE TO CORONAVIRUS DISEASE 2019 Status: Acute Priority: High Current Visit: Yes Onset Date: ~06/16/21 Annotation/Comment:: Receiving Remdesivir and Dexamethasone (2) Hypoxia SNOMED Code(s): 466837538 Code(s): R09.02 - HYPOXEMIA Status: Acute Priority: High Current Visit: Yes Annotation/Comment:: Currently receving 8L via [place]. - Problem List Review Problem List Initiated/Reviewed/Updated: Yes - My Orders Last 24 Hours: My Active Orders 06/25/21 11:12 Albuterol/Ipratropium [Combivent Respimat] 0 gm INH QID PRN - Assessment Assessment:: Covid related hypoxemia. Stable. Mild improvement in O2 sats this morning on 8L. Stable respiratory rate. - Plan Plan:: Continue supplemental oxygen/Remdesivir/Dexamethasone. Consider transfer to [place] if worsening respiratory compromise is noted. Anticipate additional 3-4+ days inpatient care depending upon clinical course.
[2021-06-26] MEDS: REMDESIVIR 100 MG in Sodium Chloride 0.9% 100 ML IV SCH (15:32)
[2021-06-27 07:51] LABS: ANION GAP 8.9 meq/L (7-15); CHLORIDE,CL 107 mmol/L (98-107); SODIUM,NA 142 mmol/L (136-145)
[2021-06-27] MEDS: Enoxaparin 40 MG/0.4 ML Syringe SUBCUT SCH (08:38)
[2021-06-27] MEDS: Dexamethasone 2 MG Tab PO SCH (08:39)
[2021-06-27] MEDS: Sodium Chloride 0.9% 10 ML Syringe FLUSH SCH ×4 (08:40→21:31)
[2021-06-27] MEDS ORDERED: GI Cocktail Oral Solution 30 ML PO ONE (09:11)
[2021-06-27] MEDS: Albuterol/Ipratropium 3.0-0.5 MG/3 ML Neb Soln NEB SCH ×4 (09:34→21:30)
[2021-06-27] MEDS: Pantoprazole 40 MG Vial IVPUSH SCH (09:34)
[2021-06-27] MEDS: Sodium Chloride 0.9% 10 ML Syringe FLUSH PRN ×3 (09:35→11:59)
[2021-06-27 10:22] LABS: O2 DELIVERY DEVICE HI FLOW NASAL CANNU; PCO2 ARTERIAL 35 mmHG (35-45); PO2 ARTERIAL 79 mmHG (80-105)
[2021-06-27 10:23] LABS: BASE EXCESS ARTERIAL 1 mmol/L (-2-3); BICARBONATE,ARTERIAL 24.2 mmol/L (22-26); O2 SATURATION ARTERIAL 96 % (95-98)
[2021-06-27] MEDS ORDERED: REMDESIVIR 100 MG in Sodium Chloride 0.9% 100 ML IV SCH (12:00)
--- NOTE | 2021-06-27 13:32 | PCM.PN ---
- General Info Date of Service: 06/27/21 Admission Dx/Problem (Free Text): Patient admitted for treatment of worsening Covid and Covid-related hypoxemia Subjective Update: Feels better since being started on oxygen. No better/no worse per self report Pain Score: 0 - Review of Systems General: Reports: Weakness, Fatigue, Malaise HEENT: Reports: No Symptoms Pulmonary: Reports: Shortness of Breath, Cough Cardiovascular: Reports: Dyspnea on Exertion. Denies: Chest Pain, Palpitations, Edema, Lightheadedness Gastrointestinal: Reports: Other (heartburn/epigastric discomfort. ) Genitourinary: Reports: No Symptoms Musculoskeletal: Reports: No Symptoms Skin: Reports: No Symptoms Neurological: Reports: No Symptoms Psychiatric: Reports: No Symptoms - Patient Data Vitals - Most Recent: Last Vital Signs Temp 36.8 C 06/27/21 11:59 Pulse 79 06/27/21 11:59 Resp 22 H 06/27/21 11:59 BP 128/81 06/27/21 11:59 Pulse Ox 90 L 06/27/21 11:59 Weight - Most Recent: 90.718 kg I&O - Last 24 Hours: Intake & Output 06/26/21 06/27/21 06/27/21 22:59 06:59 14:59 Intake Total 570 240 Output Total 300 500 Balance 270 -260 Lab Results Last 24 Hours: Laboratory Results - last 24 hr 06/27/21 06/27/21 06/27/21 Range/Units 07:10 07:10 10:18 WBC 13.5 H (4.0-10.2) K/uL RBC 5.28 (4.33-5.41) M/uL Hgb 15.5 (13.1-16.8) g/dL Hct 44.7 (39.0-49.0) % MCV 84.7 (84.0-98.0) fL MCH 29.4 (28.2-33.3) pg MCHC 34.7 (31.7-36.0) g/dL RDW 13.3 (11.2-14.1) % Plt Count 230 (150-350) K/uL Neut % (Auto) 92.8 H (45.0-80.0) % Lymph % (Auto) 4.5 L (10.0-50.0) % [place] % (Auto) 2.6 (2.0-14.0) % Eos % (Auto) 0.0 (0.0-5.0) % Baso % (Auto) 0.1 (0.0-2.0) % Neut # (Auto) 12.53 H (1.40-7.00) K/uL Lymph # (Auto) 0.61 (0.50-3.50) K/uL [place] # (Auto) 0.35 (0.00-1.00) K/uL Eos # (Auto) 0.00 (0.00-0.50) K/uL Baso # (Auto) 0.01 (0.00-0.20) K/uL ABG pH 7.44 (7.35-7.45) ABG pCO2 35 (35-45) mmHG ABG pO2 79 L (80-105) mmHG ABG HCO3 24.2 (22-26) mmol/L ABG Total CO2 25 (23-27) mmol/L ABG O2 Saturation 96 (95-98) % ABG Base Excess 1 (-2-3) mmol/L O2 Delivery Device Hi flow nasal cannu Sodium 142 (136-145) mmol/L Potassium 4.1 (3.5-5.1) mmol/L Chloride 107 (98-107) mmol/L Carbon Dioxide 26.1 (21.0-32.0) mmol/L Anion Gap 8.9 (7-15) meq/L BUN 27 H (7-18) mg/dL Creatinine 0.80 (0.51-1.17) mg/dL Est Cr Clr Drug Dosing 102.66 mL/min Estimated GFR (MDRD) > 60 mL/min Glucose 93 (70-99) mg/dL Lactic Acid (0.4-2.0) mmol/L Calcium 8.0 L (8.5-10.1) mg/dL Total Bilirubin 0.8 (0.2-1.0) mg/dL Direct Bilirubin 0.3 H (0.0-0.2) mg/dL AST 26 (15-37) U/L ALT 38 (12-78) U/L Alkaline Phosphatase 50 (46-116) IU/L Total Protein 6.7 (6.4-8.2) g/dL Albumin 2.5 L (3.4-5.0) g/dL 06/27/21 Range/Units 10:18 WBC (4.0-10.2) K/uL RBC (4.33-5.41) M/uL Hgb (13.1-16.8) g/dL Hct (39.0-49.0) % MCV (84.0-98.0) fL MCH (28.2-33.3) pg MCHC (31.7-36.0) g/dL RDW (11.2-14.1) % Plt Count (150-350) K/uL Neut % (Auto) (45.0-80.0) % Lymph % (Auto) (10.0-50.0) % [place] % (Auto) (2.0-14.0) % Eos % (Auto) (0.0-5.0) % Baso % (Auto) (0.0-2.0) % Neut # (Auto) (1.40-7.00) K/uL Lymph # (Auto) (0.50-3.50) K/uL [place] # (Auto) (0.00-1.00) K/uL Eos # (Auto) (0.00-0.50) K/uL Baso # (Auto) (0.00-0.20) K/uL ABG pH (7.35-7.45) ABG pCO2 (35-45) mmHG ABG pO2 (80-105) mmHG ABG HCO3 (22-26) mmol/L ABG Total CO2 (23-27) mmol/L ABG O2 Saturation (95-98) % ABG Base Excess (-2-3) mmol/L O2 Delivery Device Sodium (136-145) mmol/L Potassium (3.5-5.1) mmol/L Chloride (98-107) mmol/L Carbon Dioxide (21.0-32.0) mmol/L Anion Gap (7-15) meq/L BUN (7-18) mg/dL Creatinine (0.51-1.17) mg/dL Est Cr Clr Drug Dosing mL/min Estimated GFR (MDRD) mL/min Glucose (70-99) mg/dL Lactic Acid 0.4 (0.4-2.0) mmol/L Calcium (8.5-10.1) mg/dL Total Bilirubin (0.2-1.0) mg/dL Direct Bilirubin (0.0-0.2) mg/dL AST (15-37) U/L ALT (12-78) U/L Alkaline Phosphatase (46-116) IU/L Total Protein (6.4-8.2) g/dL Albumin (3.4-5.0) g/dL [place] Results Last 24 Hours: Microbiology 06/24/21 12:30 Aerobic Blood Culture - Preliminary Blood - Venous - Lab Draw NO GROWTH AFTER 3 DAYS Anaerobic Blood Culture - Preliminary NO GROWTH AFTER 3 DAYS 06/24/21 12:14 Aerobic Blood Culture - Preliminary Blood - Venous NO GROWTH AFTER 3 DAYS Anaerobic Blood Culture - Preliminary NO GROWTH AFTER 3 DAYS Med Orders - Current: Current Medications Al Hydroxide/Mg Hydroxide (Aluminum Hydroxide/Magnesium Hydroxide/Simethicone Susp 30 Ml Cup) 30 ml PO Q6H PRN PRN Reason: Dyspepsia Last Admin: 06/26/21 02:44 Dose: 30 ml Documented by: Albuterol/Ipratropium (Albuterol/Ipratropium 4 Gm Inhalation [place]) 0 gm INH QID PRN PRN Reason: SHORTNESS OF BREATH Last Admin: 06/27/21 08:39 Dose: 1 puff Documented by: Albuterol/Ipratropium (Albuterol/Ipratropium 3.0-0.5 Mg/3 Ml Neb Soln) 3 ml NEB Q4HRRT [facility] Last Admin: 06/27/21 11:57 Dose: 3 ml Documented by: Dexamethasone (Dexamethasone 2 Mg Tab) 6 mg PO DAILY [facility] Last Admin: 06/27/21 08:39 Dose: 6 mg Documented by: Enoxaparin Sodium (Enoxaparin 40 Mg/0.4 Ml Syringe) 40 mg SUBCUT DAILY [facility] Last Admin: 06/27/21 08:38 Dose: 40 mg Documented by: Remdesivir 100 mg/ Sodium (Chloride) 100 mls @ 100 mls/hr IV Q24H [facility] Stop: 06/28/21 12:59 Last Admin: 06/27/21 11:57 Dose: 100 mls/hr Documented by: Pantoprazole Sodium (Pantoprazole 40 Mg Vial) 40 mg IVPUSH DAILY [facility] Last Admin: 06/27/21 09:34 Dose: 40 mg Documented by: Sodium Chloride (Sodium Chloride 0.9% 10 Ml Syringe) 10 ml FLUSH ASDIRECTED PRN PRN Reason: Keep Vein Open Last Admin: 06/27/21 11:59 Dose: 10 ml Documented by: Sodium Chloride (Sodium Chloride 0.9% 10 Ml Syringe) 30 ml FLUSH DAILY@1600 [facility] Stop: 06/28/21 16:01 Last Admin: 06/26/21 16:27 Dose: 30 ml Documented by: Sodium Chloride (Sodium Chloride 0.9% 10 Ml Syringe) 10 ml FLUSH Q12HR [facility] Last Admin: 06/27/21 08:40 Dose: 10 ml Documented by: Discontinued Medications Al Hydroxide/Mg Hydroxide (Gi Cocktail Oral Solution 30 Ml) 30 ml PO ONETIME ONE Stop: 06/27/21 09:12 Last Admin: 06/27/21 09:34 Dose: 30 ml Documented by: Albuterol/Ipratropium (Albuterol/Ipratropium 3.0-0.5 Mg/3 Ml Neb Soln) 3 ml NEB Q4HRRT PRN PRN Reason: Dyspnea Last Admin: 06/25/21 08:10 Dose: 3 ml Documented by: Azithromycin (Azithromycin 250 Mg Tab) 500 mg PO ONETIME ONE Stop: 06/24/21 15:01 Last Admin: 06/24/21 15:06 Dose: 500 mg Documented by: Dexamethasone (Dexamethasone 10 Mg/Ml Sdv) 6 mg IVPUSH DAILY [facility] Remdesivir 200 mg/ Sodium (Chloride) 250 mls @ 250 mls/hr IV ONETIME ONE Stop: 06/24/21 12:41 Last Admin: 06/24/21 15:09 Dose: 250 mls/hr Documented by: Remdesivir 100 mg/ Sodium (Chloride) 100 mls @ 100 mls/hr IV Q24H [facility] Stop: 06/28/21 15:59 Last Admin: 06/26/21 15:32 Dose: 100 mls/hr Documented by: Iopamidol (Iopamidol 755 Mg/Ml 100 Ml Bottle) 100 ml IVPUSH ONETIME [facility] Stop: 06/24/21 13:40 Last Admin: 06/24/21 14:09 Dose: 100 ml Documented by: - Exam Quality Assessment: Supplemental Oxygen, DVT Prophylaxis General: Alert, Oriented, Cooperative, No Acute Distress HEENT: Pupils Equal, Pupils Reactive, EOMI, Mucous Membr. Moist/[place] Neck: Supple Lungs: Normal Respiratory Effort, Decreased Breath Sounds. No: Crackles, Rales, Rhonchi, Rub, Stridor, Wheezing Cardiovascular: Regular Rate, Regular Rhythm GI/Abdominal Exam: Soft, Non-Tender, No Distention (Male) Exam: Deferred Back Exam: No: CVA Tenderness (L), CVA Tenderness (R), Muscle Spasm Extremities: Normal Inspection, Normal Capillary Refill Skin: Warm, Dry Neurological: No New Focal Deficit Psy/Mental Status: Alert, Normal Affect, Normal Mood - Patient Data Lab Results Last 24 hrs: Laboratory Results - last 24 hr 06/27/21 06/27/21 06/27/21 Range/Units 07:10 07:10 10:18 WBC 13.5 H (4.0-10.2) K/uL RBC 5.28 (4.33-5.41) M/uL Hgb 15.5 (13.1-16.8) g/dL Hct 44.7 (39.0-49.0) % MCV 84.7 (84.0-98.0) fL MCH 29.4 (28.2-33.3) pg MCHC 34.7 (31.7-36.0) g/dL RDW 13.3 (11.2-14.1) % Plt Count 230 (150-350) K/uL Neut % (Auto) 92.8 H (45.0-80.0) % Lymph % (Auto) 4.5 L (10.0-50.0) % [place] % (Auto) 2.6 (2.0-14.0) % Eos % (Auto) 0.0 (0.0-5.0) % Baso % (Auto) 0.1 (0.0-2.0) % Neut # (Auto) 12.53 H (1.40-7.00) K/uL Lymph # (Auto) 0.61 (0.50-3.50) K/uL [place] # (Auto) 0.35 (0.00-1.00) K/uL Eos # (Auto) 0.00 (0.00-0.50) K/uL Baso # (Auto) 0.01 (0.00-0.20) K/uL ABG pH 7.44 (7.35-7.45) ABG pCO2 35 (35-45) mmHG ABG pO2 79 L (80-105) mmHG ABG HCO3 24.2 (22-26) mmol/L ABG Total CO2 25 (23-27) mmol/L ABG O2 Saturation 96 (95-98) % ABG Base Excess 1 (-2-3) mmol/L O2 Delivery Device Hi flow nasal cannu Sodium 142 (136-145) mmol/L Potassium 4.1 (3.5-5.1) mmol/L Chloride 107 (98-107) mmol/L Carbon Dioxide 26.1 (21.0-32.0) mmol/L Anion Gap 8.9 (7-15) meq/L BUN 27 H (7-18) mg/dL Creatinine 0.80 (0.51-1.17) mg/dL Est Cr Clr Drug Dosing 102.66 mL/min Estimated GFR (MDRD) > 60 mL/min Glucose 93 (70-99) mg/dL Lactic Acid (0.4-2.0) mmol/L Calcium 8.0 L (8.5-10.1) mg/dL Total Bilirubin 0.8 (0.2-1.0) mg/dL Direct Bilirubin 0.3 H (0.0-0.2) mg/dL AST 26 (15-37) U/L ALT 38 (12-78) U/L Alkaline Phosphatase 50 (46-116) IU/L Total Protein 6.7 (6.4-8.2) g/dL Albumin 2.5 L (3.4-5.0) g/dL 06/27/21 Range/Units 10:18 WBC (4.0-10.2) K/uL RBC (4.33-5.41) M/uL Hgb (13.1-16.8) g/dL Hct (39.0-49.0) % MCV (84.0-98.0) fL MCH (28.2-33.3) pg MCHC (31.7-36.0) g/dL RDW (11.2-14.1) % Plt Count (150-350) K/uL Neut % (Auto) (45.0-80.0) % Lymph % (Auto) (10.0-50.0) % [place] % (Auto) (2.0-14.0) % Eos % (Auto) (0.0-5.0) % Baso % (Auto) (0.0-2.0) % Neut # (Auto) (1.40-7.00) K/uL Lymph # (Auto) (0.50-3.50) K/uL [place] # (Auto) (0.00-1.00) K/uL Eos # (Auto) (0.00-0.50) K/uL Baso # (Auto) (0.00-0.20) K/uL ABG pH (7.35-7.45) ABG pCO2 (35-45) mmHG ABG pO2 (80-105) mmHG ABG HCO3 (22-26) mmol/L ABG Total CO2 (23-27) mmol/L ABG O2 Saturation (95-98) % ABG Base Excess (-2-3) mmol/L O2 Delivery Device Sodium (136-145) mmol/L Potassium (3.5-5.1) mmol/L Chloride (98-107) mmol/L Carbon Dioxide (21.0-32.0) mmol/L Anion Gap (7-15) meq/L BUN (7-18) mg/dL Creatinine (0.51-1.17) mg/dL Est Cr Clr Drug Dosing mL/min Estimated GFR (MDRD) mL/min Glucose (70-99) mg/dL Lactic Acid 0.4 (0.4-2.0) mmol/L Calcium (8.5-10.1) mg/dL Total Bilirubin (0.2-1.0) mg/dL Direct Bilirubin (0.0-0.2) mg/dL AST (15-37) U/L ALT (12-78) U/L Alkaline Phosphatase (46-116) IU/L Total Protein (6.4-8.2) g/dL Albumin (3.4-5.0) g/dL Result Diagrams: 06/27/21 07:10 06/27/21 07:10 [place]y Results Last 24 hrs: Microbiology 06/24/21 12:30 Aerobic Blood Culture - Preliminary Blood - Venous - Lab Draw NO GROWTH AFTER 3 DAYS Anaerobic Blood Culture - Preliminary NO GROWTH AFTER 3 DAYS 06/24/21 12:14 Aerobic Blood Culture - Preliminary Blood - Venous NO GROWTH AFTER 3 DAYS Anaerobic Blood Culture - Preliminary NO GROWTH AFTER 3 DAYS Sepsis Event Note - Evaluation Sepsis Screening Result: No Definite Risk - Focused Exam Vital Signs: Vital Signs Temp Temp Pulse Resp BP BP Pulse Ox 06/27/21 11:59 36.8 C 79 22 H 128/81 90 L 06/27/21 10:38 99 06/27/21 10:00 98 06/27/21 08:05 93 L 06/27/21 08:00 36.2 C 78 18 134/81 90 L 06/27/21 04:00 36.3 C 80 20 135/88 90 L - Problem List & Annotations (1) Pneumonia due to 2019 novel coronavirus SNOMED Code(s): 586118276335267109 Code(s): U07.1 - COVID-19; J12.82 - PNEUMONIA DUE TO CORONAVIRUS DISEASE 2019 Status: Acute Priority: High Current Visit: Yes Onset Date: ~06/16/21 Annotation/Comment:: Remdesivir and Dexamethasone ordered. (2) Hypoxia SNOMED Code(s): 861409486 Code(s): R09.02 - HYPOXEMIA Status: Acute Priority: High Current Visit: Yes Annotation/Comment:: Currently receving 8L via NC. - Problem List Review Problem List Initiated/Reviewed/Updated: Yes - My Orders Last 24 Hours: My Active Orders 06/27/21 09:13 RT Aerosol Therapy [RC] ASDIRECTED Albuterol/Ipratropium [DuoNeb 3.0-0.5 MG/3 ML] 3 ml NEB Q4HRRT 06/27/21 09:15 Pantoprazole [ProTONIX IV] 40 mg IVPUSH DAILY 06/27/21 10:12 Chest 1V Frontal [CR] Stat - Assessment Assessment:: Covid related hypoxemia. Stable. Brief need to increase patient to 10L this morning. Neb given and O2 sats improved. Now back on 8L with O2 sat at 90%. Regular nebs reinstated vs handheld MDIs. Stable respiratory rate. Negative chest CT for PE during this hospitalization. - Plan Plan:: Continue supplemental oxygen/Remdesivir/Dexamethasone. Consider transfer to [place] if worsening respiratory compromise is noted. Patient has been relatively stable but unable to decrease O2 from 8L. Anticipate additional 3-4+ days inpatient care depending upon clinical course.
[2021-06-27] MEDS ORDERED: Temazepam 15 MG Cap PO PRN (21:16)
[2021-06-28] MEDS: Albuterol/Ipratropium 3.0-0.5 MG/3 ML Neb Soln NEB SCH ×4 (00:17→08:03)
[2021-06-28 07:42] LABS: ANION GAP 6.4 meq/L (7-15); CHLORIDE,CL 107 mmol/L (98-107); SODIUM,NA 142 mmol/L (136-145)
[2021-06-28] MEDS: Dexamethasone 2 MG Tab PO SCH (08:01)
[2021-06-28] MEDS: Enoxaparin 40 MG/0.4 ML Syringe SUBCUT SCH (08:03)
[2021-06-28] MEDS: Pantoprazole 40 MG Vial IVPUSH SCH (08:04)
[2021-06-28] MEDS: Sodium Chloride 0.9% 10 ML Syringe FLUSH SCH (08:05)
[2021-06-28 08:14] VITALS: BP 118/80; PULSE 78
--- NOTE | 2021-06-28 09:23 | PCM.DCSUM1 ---
Discharge Summary - Hospital Course Brief History: Patient admitted for treatment of hypoxemia due to acute Covid infection Diagnosis: Stroke: No - Discharge Data Discharge Date: 06/28/21 Discharge Disposition: DC/Tfer to Acute Hospital 02 Condition: Good - Referral to Home Health Primary Care Physician: PCP None - Discharge Diagnosis/Problem(s) (1) Pneumonia due to 2019 novel coronavirus SNOMED Code(s): 415341398286707059 ICD Code: U07.1 - COVID-19; J12.82 - PNEUMONIA DUE TO CORONAVIRUS DISEASE 2019 Status: Acute Priority: High Current Visit: Yes Onset Date: ~06/16/21 Problem Details: Remdesivir and Dexamethasone. O2 supplementation. Patient did not receive vaccine. (2) Hypoxia SNOMED Code(s): 150523163 ICD Code: R09.02 - HYPOXEMIA Status: Acute Priority: High Current Visit: Yes Problem Details: Currently receiving 9.5L NC - Patient Summary/Data Hospital Course: Patient remained stable at 8L for initial portion of stay. Has been requiring increasing support over last 24 hours. WBC elevated yesterday but improving today. Patient afebrile. Mild increased severity of pneumonia per Radiology. Now requiring 9.5L. Has started to experience tachypnea again. Respiratory rate at/over 40 whenever he is up/performing an activity. O2 sats at rest high 80s. Desats to 70s with activity. Given this decline patient it was felt that patient needed higher level of care. Reviewed with Phuc/. He accepted patient for transfer to [place]. Patient will initially go to intermediate care. - Discharge Plan Home Medications: Home Meds Azithromycin 1 tab PO DAILY 06/24/21 [History] dexAMETHasone [Dexamethasone] 6 mg PO DAILY 06/24/21 [History] Forms: ED Department Discharge Referrals: PCP,None [Primary Care Provider] - - Discharge Summary/Plan Comment DC Time >30 min.: No Total # of Minutes for Discharge Time: 30 - Patient Data Vitals - Most Recent: Last Vital Signs Temp 36.6 C 06/28/21 08:00 Pulse 78 06/28/21 08:00 Resp 28 H 06/28/21 08:00 BP 118/80 06/28/21 08:00 Pulse Ox 87 L 06/28/21 08:00 Weight - Most Recent: 90.718 kg I&O - Last 24 hours: Intake & Output 06/27/21 06/28/21 06/28/21 22:59 06:59 14:59 Intake Total 500 480 Output Total 600 700 Balance -100 -220 Lab Results - Last 24 hrs: Laboratory Results - last 24 hr 06/27/21 06/27/21 06/27/21 Range/Units 07:10 10:18 10:18 WBC 13.5 H (4.0-10.2) K/uL RBC 5.28 (4.33-5.41) M/uL Hgb 15.5 (13.1-16.8) g/dL Hct 44.7 (39.0-49.0) % MCV 84.7 (84.0-98.0) fL MCH 29.4 (28.2-33.3) pg MCHC 34.7 (31.7-36.0) g/dL RDW 13.3 (11.2-14.1) % Plt Count 230 (150-350) K/uL Neut % (Auto) 92.8 H (45.0-80.0) % Lymph % (Auto) 4.5 L (10.0-50.0) % [place] % (Auto) 2.6 (2.0-14.0) % Eos % (Auto) 0.0 (0.0-5.0) % Baso % (Auto) 0.1 (0.0-2.0) % Neut # (Auto) 12.53 H (1.40-7.00) K/uL Lymph # (Auto) 0.61 (0.50-3.50) K/uL [place] # (Auto) 0.35 (0.00-1.00) K/uL Eos # (Auto) 0.00 (0.00-0.50) K/uL Baso # (Auto) 0.01 (0.00-0.20) K/uL ABG pH 7.44 (7.35-7.45) ABG pCO2 35 (35-45) mmHG ABG pO2 79 L (80-105) mmHG ABG HCO3 24.2 (22-26) mmol/L ABG Total CO2 25 (23-27) mmol/L ABG O2 Saturation 96 (95-98) % ABG Base Excess 1 (-2-3) mmol/L O2 Delivery Device Hi flow nasal cannu Sodium (136-145) mmol/L Potassium (3.5-5.1) mmol/L Chloride (98-107) mmol/L Carbon Dioxide (21.0-32.0) mmol/L Anion Gap (7-15) meq/L BUN (7-18) mg/dL Creatinine (0.51-1.17) mg/dL Est Cr Clr Drug Dosing mL/min Estimated GFR (MDRD) mL/min Glucose (70-99) mg/dL Lactic Acid 0.4 (0.4-2.0) mmol/L Calcium (8.5-10.1) mg/dL Total Bilirubin (0.2-1.0) mg/dL Direct Bilirubin (0.0-0.2) mg/dL AST (15-37) U/L ALT (12-78) U/L Alkaline Phosphatase (46-116) IU/L Total Protein (6.4-8.2) g/dL Albumin (3.4-5.0) g/dL 06/28/21 06/28/21 Range/Units 07:18 07:18 WBC 11.4 H (4.0-10.2) K/uL RBC 5.44 H (4.33-5.41) M/uL Hgb 15.9 (13.1-16.8) g/dL Hct 46.4 (39.0-49.0) % MCV 85.3 (84.0-98.0) fL MCH 29.2 (28.2-33.3) pg MCHC 34.3 (31.7-36.0) g/dL RDW 13.2 (11.2-14.1) % Plt Count 230 (150-350) K/uL Neut % (Auto) 92.7 H (45.0-80.0) % Lymph % (Auto) 4.3 L (10.0-50.0) % [place] % (Auto) 2.8 (2.0-14.0) % Eos % (Auto) 0.1 (0.0-5.0) % Baso % (Auto) 0.1 (0.0-2.0) % Neut # (Auto) 10.55 H (1.40-7.00) K/uL Lymph # (Auto) 0.49 L (0.50-3.50) K/uL [place] # (Auto) 0.32 (0.00-1.00) K/uL Eos # (Auto) 0.01 (0.00-0.50) K/uL Baso # (Auto) 0.01 (0.00-0.20) K/uL ABG pH (7.35-7.45) ABG pCO2 (35-45) mmHG ABG pO2 (80-105) mmHG ABG HCO3 (22-26) mmol/L ABG Total CO2 (23-27) mmol/L ABG O2 Saturation (95-98) % ABG Base Excess (-2-3) mmol/L O2 Delivery Device Sodium 142 (136-145) mmol/L Potassium 4.5 (3.5-5.1) mmol/L Chloride 107 (98-107) mmol/L Carbon Dioxide 28.6 (21.0-32.0) mmol/L Anion Gap 6.4 L (7-15) meq/L BUN 25 H (7-18) mg/dL Creatinine 0.99 (0.51-1.17) mg/dL Est Cr Clr Drug Dosing 82.95 mL/min Estimated GFR (MDRD) > 60 mL/min Glucose 99 (70-99) mg/dL Lactic Acid (0.4-2.0) mmol/L Calcium 8.1 L (8.5-10.1) mg/dL Total Bilirubin 0.7 (0.2-1.0) mg/dL Direct Bilirubin 0.2 (0.0-0.2) mg/dL AST 24 (15-37) U/L ALT 35 (12-78) U/L Alkaline Phosphatase 49 (46-116) IU/L Total Protein 6.9 (6.4-8.2) g/dL Albumin 2.4 L (3.4-5.0) g/dL [place]IE Results - Last 24 hrs: Microbiology 06/24/21 12:30 Aerobic Blood Culture - Preliminary Blood - Venous - Lab Draw NO GROWTH AFTER 3 DAYS Anaerobic Blood Culture - Preliminary NO GROWTH AFTER 3 DAYS 06/24/21 12:14 Aerobic Blood Culture - Preliminary Blood - Venous NO GROWTH AFTER 3 DAYS Anaerobic Blood Culture - Preliminary NO GROWTH AFTER 3 DAYS Med Orders - Current: Current Medications Al Hydroxide/Mg Hydroxide (Aluminum Hydroxide/Magnesium Hydroxide/Simethicone Susp 30 Ml Cup) 30 ml PO Q6H PRN PRN Reason: Dyspepsia Last Admin: 06/26/21 02:44 Dose: 30 ml Documented by: Albuterol/Ipratropium (Albuterol/Ipratropium 4 Gm Inhalation [place]) 0 gm INH QID PRN PRN Reason: SHORTNESS OF BREATH Last Admin: 06/27/21 08:39 Dose: 1 puff Documented by: Albuterol/Ipratropium (Albuterol/Ipratropium 3.0-0.5 Mg/3 Ml Neb Soln) 3 ml NEB Q4HRRT [facility] Last Admin: 06/28/21 08:03 Dose: 3 ml Documented by: Dexamethasone (Dexamethasone 2 Mg Tab) 6 mg PO DAILY [facility] Last Admin: 06/28/21 08:01 Dose: 6 mg Documented by: Enoxaparin Sodium (Enoxaparin 40 Mg/0.4 Ml Syringe) 40 mg SUBCUT DAILY [facility] Last Admin: 06/28/21 08:03 Dose: 40 mg Documented by: Remdesivir 100 mg/ Sodium (Chloride) 100 mls @ 100 mls/hr IV Q24H [facility] Stop: 06/28/21 12:59 Last Admin: 06/27/21 11:57 Dose: 100 mls/hr Documented by: Pantoprazole Sodium (Pantoprazole 40 Mg Vial) 40 mg IVPUSH DAILY [facility] Last Admin: 06/28/21 08:04 Dose: 40 mg Documented by: Sodium Chloride (Sodium Chloride 0.9% 10 Ml Syringe) 10 ml FLUSH ASDIRECTED PRN PRN Reason: Keep Vein Open Last Admin: 06/27/21 11:59 Dose: 10 ml Documented by: Sodium Chloride (Sodium Chloride 0.9% 10 Ml Syringe) 30 ml FLUSH DAILY@1600 [facility] Stop: 06/28/21 16:01 Last Admin: 06/27/21 16:04 Dose: Not Given Documented by: Sodium Chloride (Sodium Chloride 0.9% 10 Ml Syringe) 10 ml FLUSH Q12HR [facility] Last Admin: 06/28/21 08:05 Dose: 10 ml Documented by: Temazepam (Temazepam 15 Mg Cap) 15 mg PO BEDTIME PRN PRN Reason: Insomnia Last Admin: 06/27/21 21:31 Dose: 15 mg Documented by: Discontinued Medications Al Hydroxide/Mg Hydroxide (Gi Cocktail Oral Solution 30 Ml) 30 ml PO ONETIME ONE Stop: 06/27/21 09:12 Last Admin: 06/27/21 09:34 Dose: 30 ml Documented by: Albuterol/Ipratropium (Albuterol/Ipratropium 3.0-0.5 Mg/3 Ml Neb Soln) 3 ml NEB Q4HRRT PRN PRN Reason: Dyspnea Last Admin: 06/25/21 08:10 Dose: 3 ml Documented by: Azithromycin (Azithromycin 250 Mg Tab) 500 mg PO ONETIME ONE Stop: 06/24/21 15:01 Last Admin: 06/24/21 15:06 Dose: 500 mg Documented by: Dexamethasone (Dexamethasone 10 Mg/Ml Sdv) 6 mg IVPUSH DAILY [facility] Remdesivir 200 mg/ Sodium (Chloride) 250 mls @ 250 mls/hr IV ONETIME ONE Stop: 06/24/21 12:41 Last Admin: 06/24/21 15:09 Dose: 250 mls/hr Documented by: Remdesivir 100 mg/ Sodium (Chloride) 100 mls @ 100 mls/hr IV Q24H ANISH Stop: 06/28/21 15:59 Last Admin: 06/26/21 15:32 Dose: 100 mls/hr Documented by: Iopamidol (Iopamidol 755 Mg/Ml 100 Ml Bottle) 100 ml IVPUSH ONETIME STA Stop: 06/24/21 13:40 Last Admin: 06/24/21 14:09 Dose: 100 ml Documented by:
== END 2021-06-28 09:55 | DRG 137 ==
LOC: LL.ED 11:25 → LL.MS 12:58
PROVIDERS: ADMIT Physician Assistant; ATTEND Physician Assistant
PROC: 8E0ZXY6 Isolation (ICD-10-PCS; principal; 2021-06-24)
PROC: XW033E5 Introduction of Remdesivir Anti-infective into Peripheral Vein, Percutaneous Approach, New Technology Group 5 (ICD-10-PCS; 2021-06-24)
PROC: 3E0333Z Introduction of Anti-inflammatory into Peripheral Vein, Percutaneous Approach (ICD-10-PCS; 2021-06-24)
DX: U07.1 COVID-19 (principal); J12.82 Pneumonia due to coronavirus disease 2019; R09.02 Hypoxemia; I10 Essential (primary) hypertension
CPT/HCPCS: 36415; 71045; 71275; 80053; 82248; 82728; 82803; 83605; 83615; 83735; 83880; 84100; 84484; 85025; 85379; 85610; 85730; 86140; 87040; 93005; 94640; 94761; 99285-25; A9270-GY; C9113; J1650; J7050; J7620-GY; J8540; Q9967